=== PATIENT | female | born 1975 | race Caucasian/White ===

== ENCOUNTER 2017-03-21 18:26 | Observation (INO) | payer OTHER ==
[~2017-03-21] VITALS: Ht 172.7 cm; Wt 70.0 kg
[2017-03-21] MEDS ORDERED: FENTANYL PF 100 MCG/2ML ONE (20:24)
[2017-03-21] MEDS ORDERED: MIDAZOLAM 1 MG/ML, 2ML ONE (20:24)
[2017-03-21] MEDS ORDERED: PROPOFOL 10 MG/ML, 20ML ONE ×2 (20:25→20:49)
[2017-03-21] MEDS ORDERED: DEXAMETHASONE 4 MG/ML, 1ML ONE (20:25)
[2017-03-21] MEDS ORDERED: ONDANSETRON 2MG/ML, 2ML ONE ×2 (20:25)
[2017-03-21] MEDS ORDERED: LIDOCAINE GEL 2%, 5ML ONE (20:30)
[2017-03-21] MEDS ORDERED: METHYLERGONOVINE 0.2 MG/ML IM ONE (20:57)
[2017-03-21] MEDS ORDERED: PLEASE ENTER HEIGHT AND WEIGHT MC SCH (21:00)
[2017-03-21] MEDS ORDERED: PLEASE ENTER ALLERGIES MC SCH ×2 (21:00)
[2017-03-21] MEDS ORDERED: DIAZEPAM 5 MG/ML, 2ML IVPush PRN (21:00)
[2017-03-21] MEDS ORDERED: LABETALOL 5MG/ML, 20ML IV PRN (21:00)
[2017-03-21] MEDS ORDERED: ACETAMINOPHEN 325 MG TABLET PO PRN (21:00)
[2017-03-21] MEDS ORDERED: PROMETHAZINE 25 MG/ML, 1ML IV PRN (21:00)
[2017-03-21] MEDS ORDERED: EPHEDRINE 50 MG/ML, 1ML IVPush PRN (21:00)
[2017-03-21] MEDS ORDERED: FENTANYL PF 100 MCG/2ML IV PRN (21:00)
[2017-03-21] MEDS ORDERED: MEPERIDINE/PF 25MG/0.5ML IVPush PRN (21:00)
[2017-03-21] MEDS ORDERED: HYDROmorphone 1 MG/ML, 1ML IV PRN (21:00)
[2017-03-21] MEDS ORDERED: MIDAZOLAM 1 MG/ML, 2ML IV PRN (21:00)
[2017-03-21] MEDS ORDERED: OXYcodone 5 MG/5 ML ORAL.SOL UDC PO PRN (21:00)
[2017-03-21] MEDS ORDERED: ONDANSETRON 2MG/ML, 2ML IVPush PRN (21:00)
[2017-03-21] MEDS ORDERED: MISOPROSTOL 200 MCG TABLET ONE (21:14)
[2017-03-21] MEDS ORDERED: SILVER NITRATE STICK TP ONE (21:50)
[2017-03-21] MEDS ORDERED: OXYcodone 5 MG/5 ML ORAL.SOL UDC ONE (22:01)
[2017-03-21] MEDS ORDERED: ACETAMINOPHEN 650 MG/20.3 ML UDC ONE (22:01)
[2017-03-21] MEDS ORDERED: IBUP200T48 PO (23:48)
[2017-03-21] MEDS ORDERED: OXYC-302 PO (23:49)
[2017-03-22] VITALS: BP 112/65
== END 2017-03-22 00:42 | disposition home or self-care (01) ==
LOC: OR 18:26 → 4NOR 18:27 → MERGE 23:06 → 4NOR 23:06 → OR 23:06
PROVIDERS: ADMIT Obstetrics & Gynecology; ATTEND Obstetrics & Gynecology
DX: O02.0 Blighted ovum and nonhydatidiform mole (principal); O02.1 Missed abortion; O62.2 Other uterine inertia; O99.354 Diseases of the nervous system complicating childbirth; G47.30 Sleep apnea, unspecified; O99.52 Diseases of the respiratory system complicating childbirth; J45.909 Unspecified asthma, uncomplicated; Z88.0 Allergy status to penicillin; Z3A.01 Less than 8 weeks gestation of pregnancy
CPT/HCPCS: 59820; 88305; G0378; J1100; J2210; J2250; J2405; J2704; J3010

== ENCOUNTER 2018-01-13 12:52 | Outpatient (CLI) | payer OTHER ==
[~2018-01-13] VITALS: Ht 172.7 cm; Wt 84.0 kg
[~2018-01-13 12:52] MED LIST: IBUP200T49 PO; OXYC-302 PO
[2018-01-13 13:01] VITALS: BP 130/67
[2018-01-13 13:15] LABS: BASOPHILS # (AUTO) 0.04 x10^3/uL (0-0.1); BASOPHILS % (AUTO) 0 % (0-1); EOSINOPHILS # (AUTO) 0.09 x10^3/uL (0-0.4); EOSINOPHILS % (AUTO) 1 % (1-7); LYMPHOCYTES # (AUTO) 1.67 x10^3/uL (1-3.4); LYMPHOCYTES % (AUTO) 15 % (22-44); MD NO; MEAN CORPUSCULAR HEMOGLOBIN 30.3 pg (27.0-34.8); MEAN CORPUSCULAR HGB CONC 33.6 g/dL (32.4-35.8); MEAN CORPUSCULAR VOLUME 90.3 fL (80-100); MEAN PLATELET VOLUME 9.4 fL (7.4-10.4); MONOCYTES # (AUTO) 0.83 x10^3/uL (0.2-0.8); MONOCYTES % (AUTO) 8 % (2-9); NEUTROPHILS # (AUTO) 8.44 x10^3/uL (1.8-6.8); NEUTROPHILS % (AUTO) 76 % (42-75); PLATELET COUNT 171 x10^3/uL (130-400); RED BLOOD COUNT 4.34 x10^6/uL (3.82-5.3); RED CELL DISTRIBUTION WIDTH 13.4 % (9.6-15.2)
[2018-01-13 13:26] LABS: ALBUMIN 2.8 g/dL (3.4-5.0); ANION GAP 9 mmol/L (5-15); CALCIUM 9.3 mg/dL (8.5-10.1); CHLORIDE 105 mmol/L (98-107)
[2018-01-13 13:27] LABS: CREATININE,URINE RANDOM 53.1 mg/dL
[2018-01-13 13:30] LABS: ALANINE AMINOTRANSFERASE 22 U/L (12-78); ALKALINE PHOSPHATASE 77 U/L (45-117); BILIRUBIN,TOTAL 0.3 mg/dL (0.2-1.0); CREATININE 0.58 mg/dL (0.55-1.02); TOTAL PROTEIN 6.8 g/dL (6.4-8.2)
[2018-01-13 13:48] LABS: MICROSCOPIC INDICATED
[2018-01-13 13:51] LABS: CULTURE INDICATED? NO
[2018-01-13] MEDS ORDERED: ASPI-515 PO (14:16)
[2018-01-13] MEDS ORDERED: PREN1TAB10 PO (14:16)
== END 2018-01-13 14:39 | disposition home or self-care (01) ==
LOC: LDOP 12:52
PROVIDERS: ATTEND Obstetrics & Gynecology
DX: O16.3 Unspecified maternal hypertension, third trimester (principal); Z3A.30 30 weeks gestation of pregnancy
CPT/HCPCS: 36415; 59025; 80053; 81001; 82570; 84156; 84550; 85025; 99201; G0463

== ENCOUNTER 2018-02-17 10:37 | Observation (INO) | payer OTHER ==
[~2018-02-17] VITALS: Ht 172.7 cm; Wt 90.9 kg
[~2018-02-17 10:37] MED LIST changes: +ASPI-515 PO; +PREN1TAB10 PO
[2018-02-17 10:53] VITALS: BP 122/67
[2018-02-17 11:41] LABS: MICROSCOPIC NOT IND
[2018-02-17 11:52] LABS: CREATININE,URINE RANDOM 68.8 mg/dL
[2018-02-17 12:11] LABS: ALANINE AMINOTRANSFERASE 27 U/L (12-78); ALBUMIN 2.6 g/dL (3.4-5.0); ANION GAP 9 mmol/L (5-15); CALCIUM 9.3 mg/dL (8.5-10.1); CHLORIDE 106 mmol/L (98-107); CREATININE 0.65 mg/dL (0.55-1.02)
[2018-02-17 12:14] LABS: ALKALINE PHOSPHATASE 108 U/L (45-117); BILIRUBIN,TOTAL 0.3 mg/dL (0.2-1.0); TOTAL PROTEIN 6.4 g/dL (6.4-8.2)
[2018-02-17 12:16] LABS: BASOPHILS # (AUTO) 0.04 x10^3/uL (0-0.1); BASOPHILS % (AUTO) 1 % (0-1); EOSINOPHILS # (AUTO) 0.06 x10^3/uL (0-0.4); EOSINOPHILS % (AUTO) 1 % (1-7); LYMPHOCYTES % (AUTO) 16 % (22-44); MD MORPH REVIEW ONLY; MEAN CORPUSCULAR HEMOGLOBIN 31.6 pg (27.0-34.8); MEAN CORPUSCULAR HGB CONC 34.8 g/dL (32.4-35.8); MEAN CORPUSCULAR VOLUME 90.8 fL (80-100); MEAN PLATELET VOLUME 11.2 fL (7.4-10.4); MONOCYTES # (AUTO) 0.86 x10^3/uL (0.2-0.8); MONOCYTES % (AUTO) 9 % (2-9); NEUTROPHILS # (AUTO) 6.98 x10^3/uL (1.8-6.8); NEUTROPHILS % (AUTO) 74 % (42-75); PLATELET COUNT 160 x10^3/uL (130-400); RED BLOOD COUNT 4.38 x10^6/uL (3.82-5.3); RED CELL DISTRIBUTION WIDTH 13.5 % (9.6-15.2)
[2018-02-17 12:17] LABS: <PLATELET ESTIMATE> ADEQUATE; <RBC MORPHOLOGY> NORMAL; LARGE PLATELETS 1+
[2018-02-17] MEDS ORDERED: BETAMETHASONE 6 MG/ML, 5ML IM ONE (12:49)
[2018-02-17] MEDS ORDERED: LABETALOL 100 MG TABLET ONE (12:49)
[2018-02-17] MEDS ORDERED: ACETAMINOPHEN 325 MG TABLET PO PRN (13:00)
[2018-02-17] MEDS ORDERED: LABETALOL 100 MG TABLET PO SCH (13:00)
[2018-02-17] MEDS ORDERED: BETAMETHASONE 6 MG/ML, 5ML IM SCH (13:00)
== END 2018-02-17 19:29 | disposition home or self-care (01) ==
LOC: LDOP 10:37 → LDIP 12:50
PROVIDERS: ADMIT Obstetrics & Gynecology; ATTEND Obstetrics & Gynecology
DX: O14.93 Unspecified pre-eclampsia, third trimester (principal); Z3A.35 35 weeks gestation of pregnancy; Z79.82 Long term (current) use of aspirin
CPT/HCPCS: 36415; 59025; 80053; 81003; 82570; 84156; 84550; 85025; 87081; 96372; G0378; J0702

== ENCOUNTER 2018-02-23 10:46 | Outpatient (CLI) | payer OTHER ==
[2018-02-23 11:35] LABS: MICROSCOPIC NOT IND
[2018-02-23 11:52] LABS: BASOPHILS # (AUTO) 0.01 x10^3/uL (0-0.1); BASOPHILS % (AUTO) 0 % (0-1); EOSINOPHILS # (AUTO) 0.14 x10^3/uL (0-0.4); EOSINOPHILS % (AUTO) 1 % (1-7); LYMPHOCYTES # (AUTO) 2.18 x10^3/uL (1-3.4); LYMPHOCYTES % (AUTO) 20 % (22-44); MD SCAN; MEAN CORPUSCULAR HEMOGLOBIN 30.7 pg (27.0-34.8); MEAN CORPUSCULAR VOLUME 90.2 fL (80-100); MEAN PLATELET VOLUME 11.2 fL (7.4-10.4); MONOCYTES # (AUTO) 1.04 x10^3/uL (0.2-0.8); MONOCYTES % (AUTO) 10 % (2-9); NEUTROPHILS # (AUTO) 7.31 x10^3/uL (1.8-6.8); NEUTROPHILS % (AUTO) 69 % (42-75); PLATELET COUNT 141 x10^3/uL (130-400); RED BLOOD COUNT 4.49 x10^6/uL (3.82-5.3); RED CELL DISTRIBUTION WIDTH 13.3 % (9.6-15.2)
[2018-02-23 12:38] LABS: ALANINE AMINOTRANSFERASE 21 U/L (12-78); ALBUMIN 2.6 g/dL (3.4-5.0); ANION GAP 10 mmol/L (5-15); CHLORIDE 106 mmol/L (98-107); CREATININE 0.71 mg/dL (0.55-1.02)
[2018-02-23 12:42] LABS: BILIRUBIN, DIRECT < 0.1 mg/dL (0.1-0.2)
[2018-02-23 12:55] LABS: CREATININE,URINE RANDOM 60.4 mg/dL
[2018-02-23 13:00] LABS: ALKALINE PHOSPHATASE 119 U/L (45-117); BILIRUBIN,TOTAL 0.3 mg/dL (0.2-1.0); TOTAL PROTEIN 6.4 g/dL (6.4-8.2)
[2018-02-23] MEDS ORDERED: ACETAMINOPHEN 325 MG TABLET PO PRN (13:00)
== END 2018-02-23 14:07 | disposition home or self-care (01) ==
LOC: LDOP 10:46
PROVIDERS: ATTEND Obstetrics & Gynecology
DX: O26.893 Other specified pregnancy related conditions, third trimester (principal); Z3A.36 36 weeks gestation of pregnancy
CPT/HCPCS: 36415; 59025; 80053; 81003; 82248; 82570; 84156; 84550; 85025; 99211; G0463

== ENCOUNTER 2018-03-03 00:35 | Inpatient (IN) | payer OTHER ==
[~2018-03-03] VITALS: Ht 172.7 cm; Wt 90.0 kg
[2018-03-03 05:40] VITALS: BP 117/74
[2018-03-03] MEDS ORDERED: NEWBORN KIT ONE (05:40)
[2018-03-03] MEDS ORDERED: LACTATED RINGERS 1,000 ML IV SCH ×2 (05:41→06:00)
[2018-03-03] MEDS ORDERED: OXYTOCIN 30U/ 0.9% NaCL 500ML 500 ML IV SCH (05:41)
[2018-03-03] MEDS ORDERED: SODIUM CITRATE/CITRIC ACID 30 ML UDC PO ONE (06:00)
[2018-03-03] MEDS ORDERED: METOCLOPRAMIDE 5 MG/ML, 2ML IV ONE (06:00)
[2018-03-03] MEDS ORDERED: LACTATED RINGERS 1,000 ML IVBOLUS ONE (06:00)
[2018-03-03 06:04] LABS: BASOPHILS # (AUTO) 0.05 x10^3/uL (0-0.1); BASOPHILS % (AUTO) 1 % (0-1); EOSINOPHILS # (AUTO) 0.11 x10^3/uL (0-0.4); EOSINOPHILS % (AUTO) 1 % (1-7); LYMPHOCYTES # (AUTO) 1.94 x10^3/uL (1-3.4); LYMPHOCYTES % (AUTO) 20 % (22-44); MD NO; MEAN CORPUSCULAR HEMOGLOBIN 31.2 pg (27.0-34.8); MEAN CORPUSCULAR HGB CONC 34.4 g/dL (32.4-35.8); MEAN CORPUSCULAR VOLUME 90.8 fL (80-100); MEAN PLATELET VOLUME 10.8 fL (7.4-10.4); MONOCYTES # (AUTO) 1.18 x10^3/uL (0.2-0.8); MONOCYTES % (AUTO) 12 % (2-9); NEUTROPHILS # (AUTO) 6.44 x10^3/uL (1.8-6.8); NEUTROPHILS % (AUTO) 66 % (42-75); PLATELET COUNT 118 x10^3/uL (130-400); RED BLOOD COUNT 4.25 x10^6/uL (3.82-5.3); RED CELL DISTRIBUTION WIDTH 13.4 % (9.6-15.2)
[2018-03-03 06:16] LABS: ALANINE AMINOTRANSFERASE 22 U/L (12-78); ALBUMIN 2.5 g/dL (3.4-5.0); ANION GAP 10 mmol/L (5-15); BILIRUBIN, DIRECT < 0.1 mg/dL (0.1-0.2); CALCIUM 8.1 mg/dL (8.5-10.1); CHLORIDE 105 mmol/L (98-107)
[2018-03-03 06:18] LABS: ALKALINE PHOSPHATASE 129 U/L (45-117); BILIRUBIN,TOTAL 0.4 mg/dL (0.2-1.0); TOTAL PROTEIN 6.1 g/dL (6.4-8.2)
[2018-03-03 06:25] LABS: MICROSCOPIC NOT IND
[2018-03-03] MEDS ORDERED: OXYTOCIN 10 UNITS/ML, 1ML ONE ×2 (06:35→07:38)
[2018-03-03] MEDS ORDERED: OXYTOCIN 30U/ 0.9% NaCL 500ML 500 ML ONE ×2 (06:35→06:53)
[2018-03-03] MEDS ORDERED: LIDOCAINE/PF 1%, 30ML ONE (06:36)
[2018-03-03] MEDS ORDERED: MISOPROSTOL 200 MCG TABLET ONE (06:36)
[2018-03-03] MEDS ORDERED: LABE100T6 PO (06:48)
[2018-03-03] MEDS ORDERED: SODIUM CITRATE/CITRIC ACID 30 ML UDC ONE (06:52)
[2018-03-03] MEDS ORDERED: METOCLOPRAMIDE 5 MG/ML, 2ML ONE ×2 (06:52→13:00)
[2018-03-03] MEDS ORDERED: morphine SULFATE/PF 0.5 MG/ML, 10ML ONE (07:37)
[2018-03-03] MEDS ORDERED: SODIUM CHLORIDE 0.9% PF 10ML ONE ×2 (07:38→07:54)
[2018-03-03] MEDS ORDERED: CEFAZOLIN 1,000 MG ONE (07:38)
[2018-03-03] MEDS ORDERED: ONDANSETRON 2MG/ML, 2ML ONE ×2 (07:38→10:23)
[2018-03-03] MEDS ORDERED: DEXAMETHASONE 4 MG/ML, 1ML ONE (07:38)
[2018-03-03] MEDS ORDERED: EPHEDRINE 50 MG/ML, 1ML ONE (07:54)
[2018-03-03] MEDS ORDERED: PHENYLEPHRINE 10 MG/ML ONE (07:54)
[2018-03-03] MEDS: OXYTOCIN 30U/ 0.9% NaCL 500ML 500 ML IV SCH ×2 (09:15→19:15)
[2018-03-03] MEDS: LACTATED RINGERS 1,000 ML IV SCH ×4 (09:15→19:15)
[2018-03-03] MEDS ORDERED: morphine SULFATE 10 MG/ML, 1ML ONE (09:16)
[2018-03-03] MEDS ORDERED: BUPIVACAINE 0.25% ONE (09:28)
[2018-03-03] MEDS ORDERED: SIMETHICONE 80 MG CHEW TAB PO PRN (09:30)
[2018-03-03] MEDS ORDERED: morphine SULFATE 10 MG/ML, 1ML IVPush PRN ×3 (09:30→16:30)
[2018-03-03] MEDS ORDERED: MORPHINE SULFATE 4 MG/ML, 1ML IVPush PRN (09:30)
[2018-03-03] MEDS ORDERED: ONDANSETRON 2MG/ML, 2ML IV PRN (09:30)
[2018-03-03] MEDS ORDERED: CALCIUM CARBONATE 500 MG TAB.CHEW PO PRN (09:30)
[2018-03-03] MEDS: PRENATAL VIT/IRON/FA 1 EACH TABLET PO SCH (09:30)
[2018-03-03] MEDS ORDERED: MISOPROSTOL 200 MCG TABLET PR PRN (09:30)
[2018-03-03] MEDS ORDERED: HYDROcodone/APAP 7.5-325MG/15ML UDC ONE (09:31)
[2018-03-03] MEDS ORDERED: KETOROLAC 30 MG/1 ML ONE (09:31)
[2018-03-03] MEDS: KETOROLAC 30 MG/1 ML IV SCH ×3 (09:38→21:40)
[2018-03-03] MEDS ORDERED: HYDROcodone/APAP 7.5-325MG/15ML UDC PO PRN ×2 (10:00)
[2018-03-03] MEDS ORDERED: DEXTROSE 40%, 37.5 GM GEL ONE (10:31)
[2018-03-03 11:15] VITALS: BP 102/59
[2018-03-03] MEDS ORDERED: SCOPOLAMINE PATCH, 1.5MG PATCH.TD72 TD PRN (13:00)
[2018-03-03] MEDS ORDERED: METOCLOPRAMIDE 5 MG/ML, 2ML IVPush PRN (13:00)
[2018-03-03] MEDS ORDERED: PROMETHAZINE 25 MG/ML, 1ML IM ONE (14:30)
[2018-03-03 15:16] VITALS: BP 113/73
[2018-03-03] MEDS ORDERED: DIPHENHYDRAMINE 50 MG/ML, 1ML IV PRN (16:30)
[2018-03-03] MEDS ORDERED: ONDANSETRON 2MG/ML, 2ML IVPush PRN (16:30)
[2018-03-03] MEDS ORDERED: EPHEDRINE 50 MG/ML, 1ML IVPush PRN (16:30)
[2018-03-03] MEDS ORDERED: NALOXONE 0.4 MG/ML, 1ML IV PRN (16:30)
[2018-03-03] MEDS ORDERED: OXYcodone/APAP 5/325MG TABLET PO PRN (16:30)
[2018-03-03] MEDS ORDERED: NO SEDATIVES, TRANQUILIZERS OR ANTIEMETICS XX SCH (16:30)
[2018-03-03 16:46] LABS: BASOPHILS % (AUTO) 0 % (0-1); EOSINOPHILS # (AUTO) 0.02 x10^3/uL (0-0.4); EOSINOPHILS % (AUTO) 0 % (1-7); LYMPHOCYTES # (AUTO) 1.09 x10^3/uL (1-3.4); LYMPHOCYTES % (AUTO) 8 % (22-44); MD MORPH REVIEW ONLY; MEAN CORPUSCULAR HEMOGLOBIN 31.2 pg (27.0-34.8); MEAN CORPUSCULAR HGB CONC 34.2 g/dL (32.4-35.8); MEAN CORPUSCULAR VOLUME 91.2 fL (80-100); MEAN PLATELET VOLUME 10.5 fL (7.4-10.4); MONOCYTES # (AUTO) 0.72 x10^3/uL (0.2-0.8); MONOCYTES % (AUTO) 5 % (2-9); NEUTROPHILS # (AUTO) 12.29 x10^3/uL (1.8-6.8); NEUTROPHILS % (AUTO) 87 % (42-75); PLATELET COUNT 112 x10^3/uL (130-400); RED CELL DISTRIBUTION WIDTH 13.1 % (9.6-15.2)
[2018-03-03 16:48] LABS: <PLATELET ESTIMATE> DECREASED; <RBC MORPHOLOGY> NORMAL; LARGE PLATELETS 1+
[2018-03-03 20:00] VITALS: BP 100/55
[2018-03-03 20:30] VITALS: BP 100/55
[2018-03-04] VITALS: BP 109/67
[2018-03-04] MEDS: LACTATED RINGERS 1,000 ML IV SCH ×5 (01:15→17:15)
[2018-03-04] MEDS: KETOROLAC 30 MG/1 ML IV SCH (03:30)
[2018-03-04 04:01] VITALS: BP 111/69
[2018-03-04] MEDS: OXYTOCIN 30U/ 0.9% NaCL 500ML 500 ML IV SCH ×2 (05:15→15:15)
[2018-03-04 07:50] VITALS: BP 109/70
[2018-03-04] MEDS ORDERED: IBUPROFEN 600 MG TABLET ONE (09:04)
[2018-03-04] MEDS: DOCUSATE 100 MG CAPSULE PO PRN (09:13)
[2018-03-04] MEDS: OXYcodone/APAP 5/325MG TABLET PO PRN ×3 (09:13→17:55)
[2018-03-04] MEDS: PRENATAL VIT/IRON/FA 1 EACH TABLET PO SCH (09:14)
[2018-03-04] MEDS: IBUPROFEN 600 MG TABLET PO PRN ×3 (09:14→22:31)
[2018-03-04 13:10] VITALS: BP 107/65
[2018-03-04] MEDS: OXYcodone IR 5MG TABLET PO PRN ×2 (19:06→22:50)
[2018-03-04 20:00] VITALS: BP 116/71
[2018-03-05] MEDS: LACTATED RINGERS 1,000 ML IV SCH ×3 (01:15→09:15)
[2018-03-05] MEDS: OXYTOCIN 30U/ 0.9% NaCL 500ML 500 ML IV SCH (01:15)
[2018-03-05] MEDS: OXYcodone IR 5MG TABLET PO PRN ×5 (04:21→20:39)
[2018-03-05] MEDS: IBUPROFEN 600 MG TABLET PO PRN ×4 (04:24→22:29)
[2018-03-05] MEDS: DOCUSATE 100 MG CAPSULE PO PRN ×2 (08:14→20:39)
[2018-03-05] MEDS: PRENATAL VIT/IRON/FA 1 EACH TABLET PO SCH (08:14)
[2018-03-05 08:15] VITALS: BP 112/69
[2018-03-05 19:30] VITALS: BP 114/72
[2018-03-06] MEDS: OXYcodone IR 5MG TABLET PO PRN ×4 (00:43→13:15)
[2018-03-06] MEDS: IBUPROFEN 600 MG TABLET PO PRN (04:39)
[2018-03-06 07:05] VITALS: BP 123/80
[2018-03-06] MEDS: DOCUSATE 100 MG CAPSULE PO PRN ×2 (08:45→10:20)
[2018-03-06] MEDS: PRENATAL VIT/IRON/FA 1 EACH TABLET PO SCH (08:45)
[2018-03-06] MEDS ORDERED: DOCU-131 PO (11:18)
[2018-03-06] MEDS ORDERED: OXYC-302 PO (11:18)
[2018-03-06] MEDS ORDERED: IBUP-1222 PO (11:18)
[2018-03-06] MEDS ORDERED: OXYcodone IR 5MG TABLET ONE (13:13)
== END 2018-03-06 15:26 | disposition home or self-care (01) | DRG 784 ==
LOC: LDIP 05:37 → 2NW 11:05
PROVIDERS: ADMIT Obstetrics & Gynecology; ATTEND Obstetrics & Gynecology
PROC: 10D00Z1 Extraction of Products of Conception, Low, Open Approach (ICD-10-PCS; principal; 2018-03-03)
PROC: 0UB70ZZ Excision of Bilateral Fallopian Tubes, Open Approach (ICD-10-PCS; 2018-03-03)
DX: O34.211 Maternal care for low transverse scar from previous cesarean delivery (principal); O99.12 Other diseases of the blood and blood-forming organs and certain disorders involving the immune mechanism complicating childbirth; O99.354 Diseases of the nervous system complicating childbirth; O32.8XX0 Maternal care for other malpresentation of fetus, not applicable or unspecified; O13.4 Gestational [pregnancy-induced] hypertension without significant proteinuria, complicating childbirth; D69.6 Thrombocytopenia, unspecified; J45.909 Unspecified asthma, uncomplicated; O99.52 Diseases of the respiratory system complicating childbirth; Z30.2 Encounter for sterilization; Z37.0 Single live birth; Z3A.37 37 weeks gestation of pregnancy; Z82.49 Family history of ischemic heart disease and other diseases of the circulatory system; G43.909 Migraine, unspecified, not intractable, without status migrainosus; O34.03 Maternal care for unspecified congenital malformation of uterus, third trimester; Q51.810 Arcuate uterus; O99.344 Other mental disorders complicating childbirth; F32.9 Major depressive disorder, single episode, unspecified; Z88.0 Allergy status to penicillin
CPT/HCPCS: 36415; 80053; 81003; 82248; 84550; 85025; 86850; 86900; 88302; G0378; J0690; J1100; J1885; J2274; J2405; J2550; J2370; J2590; J2765; J7120

== ENCOUNTER → 2018-06-27 | Outpatient (CLI) | payer OTHER ==
[~2018-06-27] MED LIST changes: +DOCU-131 PO; +IBUP-1222 PO; +LABE100T6 PO
== END | disposition home or self-care (01) ==
LOC: CFH 15:38
PROVIDERS: ATTEND Nurse Practitioner Primary Care
DX: J45.20 Mild intermittent asthma, uncomplicated (principal); J32.0 Chronic maxillary sinusitis; E78.2 Mixed hyperlipidemia; R07.9 Chest pain, unspecified; Z79.899 Other long term (current) drug therapy
CPT/HCPCS: 71046